=== PATIENT | male | born 1970 | race Two or more races ===

== ENCOUNTER 2019-01-23 13:28 | Emergency (ER) | payer OTHER ==
[2019-01-23 13:50] VITALS: BP 133/75; PULSE 92; TEMP 98.1; BMI 28.5
[2019-01-23] MEDS ORDERED: DIPHTH,PERTUSS(ACELL),TET 0.5 ML DISP.SYRIN IM ONE ×2 (14:28→14:31)
[2019-01-23] MEDS ORDERED: CEPHALEXIN MONOHYDRATE 500 MG CAPSULE (UD) PO ONE (14:28)
[2019-01-23] MEDS ORDERED: CEPHALEXIN MONOHYDRATE 500 MG CAPSULE (UD) ONE (14:31)
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
== END 2019-01-23 15:14 | disposition home or self-care (01) ==
LOC: JERFT 13:28
PROC: 3E0234Z Introduction of Serum, Toxoid and Vaccine into Muscle, Percutaneous Approach (ICD-10-PCS; principal; 2019-01-23)
DX: S61.012A Laceration without foreign body of left thumb without damage to nail, initial encounter (principal); S69.92XA Unspecified injury of left wrist, hand and finger(s), initial encounter; W23.0XXA Caught, crushed, jammed, or pinched between moving objects, initial encounter; Y93.89 Activity, other specified; Y92.89 Other specified places as the place of occurrence of the external cause
CPT/HCPCS: 73140-TC-LT-FY; 90715; 99281-25